=== PATIENT | female | born 1945 | race Caucasian/White ===

== ENCOUNTER 2024-09-07 10:16 | Inpatient (IN) | payer MEDICARE ==
[~2024-09-07] VITALS: Ht 165.1 cm; Wt 55.0 kg
[2024-09-07 11:01] LABS: BASOPHILS % (AUTO) 0.5 % (0.0-2.0); EOSINOPHILS % (AUTO) 0.3 % (0.0-6.0); HEMATOCRIT 42 % (33-45); HEMOGLOBIN 13.8 g/dL (11.5-14.8); LYMPHOCYTES # (AUTO) 1.4 K/uL (0.8-4.8); LYMPHOCYTES % (AUTO) 26.3 % (20.0-44.0); MEAN CORPUSCULAR HEMOGLOBIN 30 PG (26.0-33.0); MEAN CORPUSCULAR HGB CONC 33 g/dl (31.0-36.0); MEAN CORPUSCULAR VOLUME 92 fL (82-100); MONOCYTES # (AUTO) 0.5 K/uL (0.1-1.30); MONOCYTES % (AUTO) 9.2 % (2.0-12.0); NEUTROPHILS # (AUTO) 3.4 K/uL (1.8-8.9); NEUTROPHILS % (AUTO) 63.7 % (43.0-81.0); PLATELET COUNT (AUTO) 189 K/uL (150-450); RED BLOOD CELL COUNT(AUTO) 4.57 MIL/uL (4.0-5.2); WHITE BLOOD COUNT (AUTO) 5.4 K/uL (4.3-11.0)
[2024-09-07 11:11] LABS: CALCIUM, SERUM 8.5 mg/dL (8.5-10.1); CREATININE 1.1 mg/dL (0.6-1.3); POTASSIUM 3.4 mmol/L (3.5-5.1)
[2024-09-07] MEDS ORDERED: MORPHINE SULFATE INJ 4 MG/ML DISP.SYRIN ONE ×2 (11:15→12:58)
[2024-09-07] MEDS ORDERED: ONDANSETRON HCL/PF 4 MG/2 ML VIAL ONE (11:15)
[2024-09-07 11:17] LABS: INR 1.08 (0.91-1.10); PARTIAL THROMBOPLASTIN TIME 26.1 SEC (24.3-34.3); PROTHROMBIN TIME 11.4 SECS (9.2-11.1)
[2024-09-07] MEDS: MORPHINE SULFATE INJ 2 MG/ML DISP.SYRIN IV ONE (11:20)
[2024-09-07] MEDS: ONDANSETRON HCL/PF 4 MG/2 ML VIAL IV ONE (11:25)
[2024-09-07] MEDS: MORPHINE SULFATE INJ 4 MG/ML DISP.SYRIN IV ONE (13:00)
[2024-09-07] MEDS ORDERED: OXYB-58 PO (13:30)
[2024-09-07] MEDS ORDERED: ATOR10TA (13:30)
[2024-09-07] MEDS ORDERED: DONE10TA44 PO (13:30)
[2024-09-07] MEDS ORDERED: ONDANSETRON HCL/PF 4 MG/2 ML VIAL IVP PRN (14:30)
[2024-09-07] MEDS ORDERED: MAG HYDROX/AL HYDROX/SIMETH 30 ML UDC PO PRN (14:30)
[2024-09-07] MEDS: ENOXAPARIN SODIUM 40 MG/0.4 ML DISP.SYRIN SQ SCH (14:30)
[2024-09-07] MEDS ORDERED: MAGNESIUM HYDROXIDE 30 ML UDC PO PRN (14:30)
[2024-09-07] MEDS ORDERED: Z GUARD REMEDY 4 OZ OINT TP PRN (14:30)
[2024-09-07] MEDS ORDERED: ZOLPIDEM TARTRATE 5 MG TABLET PO PRN (14:30)
[2024-09-07] MEDS ORDERED: ACETAMINOPHEN 325 MG TABLET PO PRN (14:30)
[2024-09-07 16:00] VITALS: BP 115/58; TEMP 97.7; O2SAT 100
[2024-09-07] MEDS: MORPHINE SULFATE INJ 2 MG/ML DISP.SYRIN IV PRN (18:02)
[2024-09-07] MEDS: POTASSIUM CHLORIDE 20 MEQ TAB.PRT.SR PO ONE (18:07)
[2024-09-07 18:34] VITALS: BP 118/62; TEMP 97.8; O2SAT 100
[2024-09-07 20:00] VITALS: BP 121/56; TEMP 98.1; O2SAT 97
[2024-09-07 21:38] VITALS: BP 121/56; TEMP 98.1; O2SAT 97
[2024-09-08 04:00] VITALS: BP 120/59; TEMP 98.1; O2SAT 98
[2024-09-08] MEDS ORDERED: ANESTHESIA TRAY IN PYXIS 1 EA TRAY MC ONE (06:35)
[2024-09-08] MEDS ORDERED: POLYMYXIN B SULFATE 500,000 UNITS ONE (06:35)
[2024-09-08] MEDS ORDERED: BUPIVACAINE 0.5 % PF 150 MG/30 ML VIAL ONE (06:36)
[2024-09-08] MEDS ORDERED: TRANEXAMIC ACID 1,000 MG/10 ML VIAL ONE (06:36)
[2024-09-08] MEDS ORDERED: BUPIVACAINE 0.25% 75 MG/30 ML VIAL ONE (06:36)
[2024-09-08] MEDS ORDERED: ROCURONIUM BROMIDE 50 MG/5 ML ONE (06:48)
[2024-09-08] MEDS ORDERED: FENTANYL PF 250MCG/5ML AMPUL ONE (06:48)
[2024-09-08] MEDS ORDERED: SEVOFLURANE 250 ML BOTTLE IH ONE (06:59)
[2024-09-08] MEDS ORDERED: LABETALOL HCL IV 100MG VIAL ONE (06:59)
[2024-09-08 07:07] LABS: CALCIUM, SERUM 8.4 mg/dL (8.5-10.1); CREATININE 0.8 mg/dL (0.6-1.3); MAGNESIUM 1.9 mg/dL (1.8-2.4); PHOSPHORUS 2.7 mg/dL (2.5-4.9); POTASSIUM 4.3 mmol/L (3.5-5.1)
[2024-09-08 07:08] LABS: BASOPHILS % (AUTO) 0.1 % (0.0-2.0); HEMATOCRIT 40 % (33-45); HEMOGLOBIN 13.1 g/dL (11.5-14.8); LYMPHOCYTES # (AUTO) 1.6 K/uL (0.8-4.8); LYMPHOCYTES % (AUTO) 21.7 % (20.0-44.0); MEAN CORPUSCULAR HEMOGLOBIN 31 PG (26.0-33.0); MEAN CORPUSCULAR HGB CONC 33 g/dl (31.0-36.0); MEAN CORPUSCULAR VOLUME 93 fL (82-100); MONOCYTES % (AUTO) 13.8 % (2.0-12.0); NEUTROPHILS # (AUTO) 4.8 K/uL (1.8-8.9); NEUTROPHILS % (AUTO) 64.4 % (43.0-81.0); PLATELET COUNT (AUTO) 188 K/uL (150-450); RED BLOOD CELL COUNT(AUTO) 4.29 MIL/uL (4.0-5.2); RED CELL DISTRIBUTION WIDTH 15.3 % (11.5-15.0); WHITE BLOOD COUNT (AUTO) 7.4 K/uL (4.3-11.0)
[2024-09-08] MEDS: PANTOPRAZOLE 40 MG TABLET.DR PO SCH (07:30)
[2024-09-08] MEDS ORDERED: FENTANYL PF 100MCG/2ML AMPUL ONE (09:27)
[2024-09-08 10:00] VITALS: BP 116/52; TEMP 97.7; O2SAT 98
[2024-09-08 15:05] LABS: HEMOGLOBIN 12.4 g/dL (11.5-14.8)
[2024-09-08] MEDS: CEFAZOLIN 2 GM in IV D5W 100 ML IV SCH (15:23)
[2024-09-08 16:00] VITALS: BP 110/59; TEMP 98.1; O2SAT 97
[2024-09-08 20:00] VITALS: BP 104/53; TEMP 98.1; O2SAT 98
[2024-09-09 06:31] LABS: BASOPHILS % (AUTO) 0.1 % (0.0-2.0); EOSINOPHILS % (AUTO) 0.1 % (0.0-6.0); HEMATOCRIT 34 % (33-45); HEMOGLOBIN 11.7 g/dL (11.5-14.8); LYMPHOCYTES # (AUTO) 1.8 K/uL (0.8-4.8); LYMPHOCYTES % (AUTO) 19.8 % (20.0-44.0); MEAN CORPUSCULAR HEMOGLOBIN 32 PG (26.0-33.0); MEAN CORPUSCULAR HGB CONC 34 g/dl (31.0-36.0); MEAN CORPUSCULAR VOLUME 92 fL (82-100); MONOCYTES # (AUTO) 1.1 K/uL (0.1-1.30); MONOCYTES % (AUTO) 12.2 % (2.0-12.0); NEUTROPHILS # (AUTO) 6.1 K/uL (1.8-8.9); NEUTROPHILS % (AUTO) 67.8 % (43.0-81.0); PLATELET COUNT (AUTO) 158 K/uL (150-450); RED BLOOD CELL COUNT(AUTO) 3.72 MIL/uL (4.0-5.2); RED CELL DISTRIBUTION WIDTH 14.9 % (11.5-15.0)
[2024-09-09 07:06] LABS: ALBUMIN 2.4 g/dL (3.4-5.0); BILIRUBIN,TOTAL 0.6 mg/dL (0.2-1.0); CALCIUM, SERUM 7.4 mg/dL (8.5-10.1); MAGNESIUM 1.9 mg/dL (1.8-2.4); PHOSPHORUS 2.9 mg/dL (2.5-4.9); POTASSIUM 4.5 mmol/L (3.5-5.1); TOTAL PROTEIN, SERUM 5.3 g/dL (6.4-8.2)
[2024-09-09 08:00] VITALS: BP_SYST 113; BP_SYST 115; BP_DIAS 47; BP_DIAS 62; TEMP 98.8; O2SAT 99
[2024-09-09] MEDS: ENOXAPARIN SODIUM 40 MG/0.4 ML DISP.SYRIN SQ SCH (08:40)
[2024-09-09] MEDS: HYDROCODONE/APAP 5/325MG TABLET PO PRN (09:41)
[2024-09-09 16:00] VITALS: BP 118/58; TEMP 98.4; O2SAT 98
[2024-09-09 16:50] VITALS: BP 118/58; TEMP 98.4; O2SAT 98
[2024-09-09 20:00] VITALS: BP 106/55; TEMP 98.4; O2SAT 98
[2024-09-10 06:44] LABS: BASOPHILS % (AUTO) 0.1 % (0.0-2.0); EOSINOPHILS % (AUTO) 0.2 % (0.0-6.0); HEMATOCRIT 36 % (33-45); HEMOGLOBIN 11.7 g/dL (11.5-14.8); LYMPHOCYTES # (AUTO) 1.3 K/uL (0.8-4.8); LYMPHOCYTES % (AUTO) 18.6 % (20.0-44.0); MEAN CORPUSCULAR HEMOGLOBIN 30 PG (26.0-33.0); MEAN CORPUSCULAR HGB CONC 33 g/dl (31.0-36.0); MEAN CORPUSCULAR VOLUME 92 fL (82-100); MONOCYTES # (AUTO) 0.7 K/uL (0.1-1.30); MONOCYTES % (AUTO) 9.8 % (2.0-12.0); NEUTROPHILS # (AUTO) 5.1 K/uL (1.8-8.9); NEUTROPHILS % (AUTO) 71.3 % (43.0-81.0); PLATELET COUNT (AUTO) 165 K/uL (150-450); RED BLOOD CELL COUNT(AUTO) 3.89 MIL/uL (4.0-5.2); RED CELL DISTRIBUTION WIDTH 14.8 % (11.5-15.0); WHITE BLOOD COUNT (AUTO) 7.2 K/uL (4.3-11.0)
[2024-09-10 07:09] LABS: ALBUMIN 2.3 g/dL (3.4-5.0); BILIRUBIN,TOTAL 0.7 mg/dL (0.2-1.0); CALCIUM, SERUM 7.7 mg/dL (8.5-10.1); CREATININE 0.8 mg/dL (0.6-1.3); PHOSPHORUS 2.3 mg/dL (2.5-4.9); POTASSIUM 4.4 mmol/L (3.5-5.1); TOTAL PROTEIN, SERUM 5.6 g/dL (6.4-8.2)
[2024-09-10 08:26] VITALS: BP 114/54; TEMP 97.9; O2SAT 100
[2024-09-10] MEDS: K PHOS NEUTRAL 250 MG TABLET PO ONE (15:29)
[2024-09-10 16:35] VITALS: BP 100/61; TEMP 97.9; O2SAT 96
[2024-09-10 20:00] VITALS: BP 93/52; TEMP 98.4; O2SAT 97
[2024-09-11 08:00] VITALS: BP 96/58; TEMP 97.7; O2SAT 98
[2024-09-11 16:00] VITALS: BP 111/70; TEMP 97.9
[2024-09-11 20:00] VITALS: BP 114/99; TEMP 98.1; O2SAT 97
[2024-09-12 08:00] VITALS: BP 133/62; TEMP 98.2; O2SAT 96
[2024-09-12] MEDS: HYDROCODONE/APAP 10/325MG TABLET PO PRN (08:52)
[2024-09-12 16:32] VITALS: BP 120/58; TEMP 98.1; O2SAT 98
== END 2024-09-12 17:22 | DRG 482 ==
LOC: ER 10:20 → MED 14:21
PROC: 0QS706Z Reposition Left Upper Femur with Intramedullary Internal Fixation Device, Open Approach (ICD-10-PCS; principal; 2024-09-08)
DX: M80.852A Other osteoporosis with current pathological fracture, left femur, initial encounter for fracture (principal); W01.0XXA Fall on same level from slipping, tripping and stumbling without subsequent striking against object, initial encounter; F03.90 Unspecified dementia, unspecified severity, without behavioral disturbance, psychotic disturbance, mood disturbance, and anxiety; E78.5 Hyperlipidemia, unspecified; I10 Essential (primary) hypertension; Z98.84 Bariatric surgery status; Y93.9 Activity, unspecified; Y92.009 Unspecified place in unspecified non-institutional (private) residence as the place of occurrence of the external cause
CPT/HCPCS: 36415; 70450-TC; 73502; 73552; 73700-TC; 80048-TC; 80053-TC; 83735-TC; 84100-TC; 85025-TC; 85027-TC; 85730-TC; 86850-TC; 97110-TC; 97112-TC; 97116-TC; 97530-TC; A4217; A4223; A6209; A6253; C1713; G0378; J0690; J1650; J1885; J2270; J2405; J2704; J3010; J3490; J7030; J7050; J7060

== ENCOUNTER 2024-12-28 22:45 | Inpatient (IN) | payer MEDICARE, OTHER ==
[~2024-12-28] VITALS: Ht 152.4 cm; Wt 58.5 kg
[~2024-12-28 22:45] MED LIST: ATOR10TA; DONE10TA44 PO; OXYB-58 PO
[2024-12-28 23:22] LABS: BASOPHILS % (AUTO) 0.3 % (0.0-2.0); EOSINOPHILS % (AUTO) 0.2 % (0.0-6.0); HEMATOCRIT 40 % (33-45); HEMOGLOBIN 13.2 g/dL (11.5-14.8); LYMPHOCYTES # (AUTO) 3.1 K/uL (0.8-4.8); MEAN CORPUSCULAR HEMOGLOBIN 30 PG (26.0-33.0); MEAN CORPUSCULAR HGB CONC 33 g/dl (31.0-36.0); MEAN CORPUSCULAR VOLUME 91 fL (82-100); MONOCYTES # (AUTO) 0.8 K/uL (0.1-1.30); MONOCYTES % (AUTO) 9.2 % (2.0-12.0); NEUTROPHILS # (AUTO) 4.9 K/uL (1.8-8.9); NEUTROPHILS % (AUTO) 55.3 % (43.0-81.0); PLATELET COUNT (AUTO) 226 K/uL (150-450); RED BLOOD CELL COUNT(AUTO) 4.41 MIL/uL (4.0-5.2); RED CELL DISTRIBUTION WIDTH 14.4 % (11.5-15.0); WHITE BLOOD COUNT (AUTO) 8.9 K/uL (4.3-11.0)
[2024-12-28 23:25] LABS: CALCIUM, SERUM 8.6 mg/dL (8.5-10.1); CARBON DIOXIDE 25 mmol/L (21-32); CHLORIDE 108 mmol/L (98-107); CREATININE 1.1 mg/dL (0.6-1.3); GLUCOSE 92 mg/dL (74-106); POTASSIUM 3.9 mmol/L (3.5-5.1); SODIUM SERUM 139 mmol/L (136-145); UREA NITROGEN, BLOOD 18 mg/dL (7-18)
[2024-12-28 23:31] LABS: ALANINE AMINOTRANSFERASE 13 U/L (12-78); ALBUMIN 3.1 g/dL (3.4-5.0); ALCOHOL, BLOOD < 3 mg/dL (0-10); ALKALINE PHOSPHATASE 84 U/L (46-116); ASPARTATE AMINOTRANSFERASE 13 U/L (15-37); BILIRUBIN,DIRECT 0.1 mg/dL (0.0-0.2); BILIRUBIN,TOTAL 0.4 mg/dL (0.2-1.0); TOTAL PROTEIN, SERUM 6.4 g/dL (6.4-8.2)
[2024-12-28 23:32] LABS: ACETAMINOPHEN <10 ug/ml (10-30); SALICYLATE 1.1 mg/dL (2.8-20.0)
[2024-12-29] MEDS ORDERED: HYDR-3972 PO (00:24)
[2024-12-29] MEDS ORDERED: ZOLP1.752 SL (00:24)
[2024-12-29 00:28] VITALS: O2SAT 98
[2024-12-29 00:35] LABS: AMPHETAMINE, URINE NEGATIVE (NEGATIVE); BARBITURATE, URINE NEGATIVE (NEGATIVE); BENZODIAZEPINE, URINE NEGATIVE (NEGATIVE); CANNABINOID, URINE NEGATIVE (NEGATIVE); COCCAINE, URINE NEGATIVE (NEGATIVE); OPIATE, URINE NEGATIVE (NEGATIVE); PHENCYCLIDINE SCREEN,URINE NEGATIVE (NEGATIVE)
[2024-12-29 00:39] LABS: APPEARANCE,URINE CLEAR (CLEAR); BILIRUBIN,URINE NEGATIVE (NEGATIVE); BLOOD, URINE NEGATIVE Ery/uL (NEGATIVE); COLOR,URINE YELLOW (YELLOW); KETONES,URINE NEGATIVE (NEGATIVE); LEUKOCYTE ESTERASE ,URINE NEGATIVE (NEGATIVE); NITRITE, URINE NEGATIVE (NEGATIVE); PROTEIN,URINE NEGATIVE (NEGATIVE); UGLUCOSE NEGATIVE (NEGATIVE); UROBILINOGEN,URINE 0.2 EU/dL (0.2)
[2024-12-29] MEDS ORDERED: TEMAZEPAM 7.5 MG CAPSULE PO PRN ×2 (01:30)
[2024-12-29] MEDS ORDERED: MAG HYDROX/AL HYDROX/SIMETH 30 ML UDC PO PRN (01:30)
[2024-12-29] MEDS ORDERED: MAGNESIUM HYDROXIDE 30 ML UDC PO PRN ×2 (01:30→11:00)
[2024-12-29] MEDS ORDERED: LORAZEPAM 0.5 MG TABLET PO PRN (01:30)
[2024-12-29] MEDS ORDERED: ACETAMINOPHEN 325 MG TABLET PO PRN (01:30)
[2024-12-29] MEDS: OLANZAPINE 10 MG VIAL IM ONE (01:39)
[2024-12-29] MEDS: BLOOD SUGAR DIAGNOSTIC 1 EACH STRIP IN ONE (01:57)
[2024-12-29 02:33] VITALS: BP 155/68; TEMP 98.2
[2024-12-29] MEDS ORDERED: ACET325T53 PO (07:56)
[2024-12-29] MEDS ORDERED: ZOLP5TAB8 PO (07:56)
[2024-12-29] MEDS ORDERED: NA P133E RC (07:56)
[2024-12-29] MEDS ORDERED: MAG30ORA PO (07:56)
[2024-12-29] MEDS ORDERED: BISA10SU11 RC (07:56)
[2024-12-29] MEDS ORDERED: MAGN400O6 PO (07:57)
[2024-12-29] MEDS ORDERED: GUAI100S9 PO (07:57)
[2024-12-29] MEDS ORDERED: GABA-532 PO (07:57)
[2024-12-29] MEDS ORDERED: HYDR-3980 PO (07:57)
[2024-12-29] MEDS ORDERED: AMIN30LI66 PO (07:57)
[2024-12-29] MEDS ORDERED: PANT40TA49 PO (07:57)
[2024-12-29 08:00] VITALS: BP 118/78; TEMP 97.9; O2SAT 97
[2024-12-29] MEDS: LORAZEPAM 0.5 MG TABLET PO PRN (09:08)
[2024-12-29] MEDS ORDERED: HYDROCODONE/APAP 5/325MG TABLET PO PRN (11:00)
[2024-12-29] MEDS ORDERED: NA PHOS,M-B/NA PHOS,DI-BA 1 EA ENEMA RC PRN (11:00)
[2024-12-29] MEDS: OXYBUTYNIN CHLORIDE ER 5 MG TAB PO SCH (11:49)
[2024-12-29] MEDS: GABAPENTIN 100 MG CAPSULE PO SCH (11:49)
[2024-12-29 16:00] VITALS: BP 117/62; TEMP 98; O2SAT 98
[2024-12-29] MEDS: PROSOURCE / PROSTAT (PYXIS) 30 ML UDC PO SCH (18:17)
[2024-12-29] MEDS ORDERED: ATORVASTATIN 10 MG TABLET PO SCH (22:00)
[2024-12-29] MEDS ORDERED: DONEPEZIL 5 MG TABLET PO SCH (22:00)
[2024-12-30] MEDS ORDERED: PANTOPRAZOLE 40 MG TABLET.DR PO SCH (07:30)
== END 2024-12-29 19:35 | DRG 885 ==
LOC: ER 22:56 → GPS 12-29 00:22
PROVIDERS: ADMIT Psychiatry & Neurology Psychosomatic Medicine; ATTEND Nurse Practitioner Acute Care
DX: F39 Unspecified mood [affective] disorder (principal); E44.1 Mild protein-calorie malnutrition; F03.94 Unspecified dementia, unspecified severity, with anxiety; D68.59 Other primary thrombophilia; I10 Essential (primary) hypertension; N32.81 Overactive bladder; K21.9 Gastro-esophageal reflux disease without esophagitis; E88.09 Other disorders of plasma-protein metabolism, not elsewhere classified; Z87.81 Personal history of (healed) traumatic fracture; Z79.899 Other long term (current) drug therapy; Z91.81 History of falling
CPT/HCPCS: 36415; 80048-TC; 80076-TC; 85025-TC; 87081-TC; 97110-TC; 97116-TC; 97530-TC; G0480; J3490